=== PATIENT | male | born 1955 | race Caucasian/White ===

== ENCOUNTER 2020-12-30 16:25 | Emergency (ER) | payer OTHER, SELFPAY | END 2020-12-30 18:35 | disposition home or self-care (01) | LOC: CSHERS 16:25 | DX: M25.551 Pain in right hip (principal); M25.561 Pain in right knee; S80.812A Abrasion, left lower leg, initial encounter; E78.5 Hyperlipidemia, unspecified; I10 Essential (primary) hypertension; F17.210 Nicotine dependence, cigarettes, uncomplicated; W01.0XXA Fall on same level from slipping, tripping and stumbling without subsequent striking against object, initial encounter ==